=== PATIENT | male | born 1950 | race Caucasian/White ===

== ENCOUNTER 2017-02-05 15:38 | Emergency (ER) | payer OTHER, MEDICAID ==
[~2017-02-05] VITALS: Ht 185.4 cm; Wt 76.2 kg
[2017-02-05 15:45] VITALS: BP 116/66
== END 2017-02-05 16:19 | disposition home or self-care (01) ==
LOC: ER 15:40
DX: L73.9 Follicular disorder, unspecified (principal)
CPT/HCPCS: 99283; A4606; Z7610

== ENCOUNTER 2017-09-27 01:27 | Emergency (ER) | payer OTHER, MEDICAID ==
[~2017-09-27] VITALS: Ht 185.4 cm; Wt 76.2 kg
--- NOTE | 2017-09-27 01:27 | NUR ---
PT BB SELF C/O "NOT SLEEPING WELL FOR 3 DAYS AND ALSO HAVE PAIN FROM LEFT SHOULDER TO LEFT SIDED CHEST". VSS NAD A/OX4 ABLE TO MAKE NEEDS KNOWN. WILL CONTINUE TO MONITOR FOR ANY CHANGES DURING THE SHIFT.
--- NOTE | 2017-09-27 01:29 | NUR ---
ER MD BURGESS AT BEDSIDE
[2017-09-27] MEDS ORDERED: ASPIRIN 81 MG TAB.CHEW ONE (01:53)
--- NOTE | 2017-09-27 02:01 | NUR ---
EXECUTIVE STAFF ASSISTANT AT BEDSIDE
--- NOTE | 2017-09-27 02:05 | NUR ---
IV STARTED LAC 20G AND BLOOD DRAWN SENT TO LAB
[2017-09-27] MEDS: ASPIRIN 325 MG TABLET PO ONE (02:08)
[2017-09-27 02:16] LABS: BASOPHILS % (AUTO) 0.4 % (0.0-2.0); EOSINOPHILS % (AUTO) 2.8 % (0.0-6.0); HEMATOCRIT 40 % (39-51); HEMOGLOBIN 13.4 g/dL (13.5-17.5); LYMPHOCYTES # (AUTO) 1.3 /CMM (0.8-4.8); LYMPHOCYTES % (AUTO) 23.4 % (20.0-44.0); MEAN CORPUSCULAR HEMOGLOBIN 31 PG (26.0-33.0); MEAN CORPUSCULAR HGB CONC 34 g/dl (31.0-36.0); MEAN CORPUSCULAR VOLUME 90 fL (80-96); MONOCYTES # (AUTO) 0.6 /CMM (0.1-1.30); MONOCYTES % (AUTO) 11.5 % (2.0-12.0); NEUTROPHILS # (AUTO) 3.4 /CMM (1.8-8.9); NEUTROPHILS % (AUTO) 61.9 % (43.0-81.0); PLATELET COUNT (AUTO) 271 /CMM (150-450); RDW COEFFICIENT OF VARIATION 13.2 (11.5-15.0); RED BLOOD CELL COUNT(AUTO) 4.39 MIL/uL (4.5-6.0); WHITE BLOOD COUNT (AUTO) 5.4 K/uL (4.3-11.0)
[2017-09-27 02:26] LABS: CALCIUM, SERUM 8.5 mg/dL (8.5-10.1); CARBON DIOXIDE 27 mmol/L (21-32); CHLORIDE 103 mmol/L (98-107); CREATININE 1.2 mg/dL (0.6-1.3); GLUCOSE 99 mg/dL (74-106); POTASSIUM 4.1 mmol/L (3.5-5.1); SODIUM SERUM 137 mmol/L (136-145); UREA NITROGEN, BLOOD 21 mg/dL (7-18)
[2017-09-27 02:37] LABS: TROPONIN I < 0.017 ng/mL (0.00-0.056)
[2017-09-27 03:13] VITALS: BP 138/81
== END 2017-09-27 03:14 | disposition home or self-care (01) ==
LOC: ER 01:29
DX: G47.00 Insomnia, unspecified (principal); R07.89 Other chest pain; F17.200 Nicotine dependence, unspecified, uncomplicated; F10.10 Alcohol abuse, uncomplicated; Y90.9 Presence of alcohol in blood, level not specified
CPT/HCPCS: 36415; 71045-TC; 80048-TC; 84484-TC; 85025-TC; A4606; Z7610

== ENCOUNTER 2017-11-24 00:25 | Emergency (ER) | payer OTHER, MEDICAID ==
[~2017-11-24] VITALS: Ht 182.9 cm; Wt 76.2 kg
--- NOTE | 2017-11-24 00:46 | NUR ---
PT AMBULATORY TO ER BED 3. BIBSELF C/O RIGHT FLANK PAIN RADIATING TO GROIN SINCE LAST NIGHT. PT PLACED IN GOWN AND ON DESIGN SUPERVISOR. VSS/RESP EVEN UNLABORED/NAD NOTED/SKIN WARM AND DRY/AFEBRILE/DENIES N-V-D/AOX4. AWAITNG MD SADLER.
--- NOTE | 2017-11-24 00:50 | NUR ---
URINE SPECIMEN OBTAINED AND SENT TO THE LAB.
[2017-11-24] MEDS ORDERED: KETOROLAC TROMETHAMINE INJ 30 MG/ML VIAL IV ONE (01:00)
[2017-11-24] MEDS ORDERED: IV NS 0.9% 1,000 ML BAG IV ONE (01:00)
[2017-11-24] MEDS ORDERED: ONDANSETRON HCL/PF 4 MG/2 ML VIAL IVP ONE (01:00)
--- NOTE | 2017-11-24 01:03 | NUR ---
AT BEDSIDE FOR EVAL.
[2017-11-24] MEDS ORDERED: KETOROLAC TROMETHAMINE INJ 30 MG/ML VIAL ONE (01:06)
[2017-11-24] MEDS ORDERED: ONDANSETRON HCL/PF 4 MG/2 ML VIAL ONE (01:06)
--- NOTE | 2017-11-24 01:15 | NUR ---
18G IV TO L AC X 1 ATTEMPT USING ASEPTIC TECH, BLOOD HANDED OVER TO THE LAB AT BEDSIDE. IV FLUSHES EASILY WITH NS, NO S/S INFILTRATION NOTED AT THIS TIME.
[2017-11-24 01:23] LABS: APPEARANCE,URINE CLEAR (CLEAR); BILIRUBIN,URINE NEGATIVE (NEGATIVE); BLOOD, URINE 1+ Ery/uL (NEGATIVE); COLOR,URINE YELLOW (YELLOW); KETONES,URINE TRACE (NEGATIVE); LEUKOCYTE ESTERASE ,URINE NEGATIVE (NEGATIVE); NITRITE, URINE NEGATIVE (NEGATIVE); PH,URINE 5.5 (5.0-8.0); PROTEIN,URINE NEGATIVE (NEGATIVE); UGLUCOSE NEGATIVE (NEGATIVE); UROBILINOGEN,URINE 0.2 EU/dL (0.2)
[2017-11-24 01:24] LABS: BASOPHILS % (AUTO) 0.5 % (0.0-2.0); EOSINOPHILS % (AUTO) 3.2 % (0.0-6.0); HEMATOCRIT 42 % (39-51); HEMOGLOBIN 13.7 g/dL (13.5-17.5); LYMPHOCYTES # (AUTO) 1.1 /CMM (0.8-4.8); LYMPHOCYTES % (AUTO) 22.2 % (20.0-44.0); MEAN CORPUSCULAR HEMOGLOBIN 30 PG (26.0-33.0); MEAN CORPUSCULAR HGB CONC 33 g/dl (31.0-36.0); MEAN CORPUSCULAR VOLUME 90 fL (80-96); MONOCYTES # (AUTO) 0.6 /CMM (0.1-1.30); MONOCYTES % (AUTO) 12.1 % (2.0-12.0); PLATELET COUNT (AUTO) 288 /CMM (150-450); RED BLOOD CELL COUNT(AUTO) 4.61 MIL/uL (4.5-6.0); WHITE BLOOD COUNT (AUTO) 4.9 K/uL (4.3-11.0)
[2017-11-24 01:31] LABS: BACTERIA,URINE Few /HPF (None Seen); MUCUS,URINE Few /LPF (None Seen); SQUAMOUS EPITHELIAL CELL,UR Rare /HPF (None Seen); WBC,URINE 0-2 /HPF (0-3)
[2017-11-24 01:32] LABS: CALCIUM, SERUM 8.7 mg/dL (8.5-10.1); CREATININE 1.1 mg/dL (0.6-1.3); POTASSIUM 3.8 mmol/L (3.5-5.1)
--- NOTE | 2017-11-24 01:35 | NUR ---
PT TO CT VIA STRETCHER.
[2017-11-24 01:38] LABS: ALBUMIN 3.3 g/dL (3.4-5.0); BILIRUBIN,DIRECT 0.1 mg/dL (0.0-0.2); BILIRUBIN,TOTAL 0.2 mg/dL (0.2-1.0); TOTAL PROTEIN, SERUM 7.1 g/dL (6.4-8.2)
--- NOTE | 2017-11-24 01:50 | NUR ---
PT BACK FROM CT.
--- NOTE | 2017-11-24 02:58 | NUR ---
IV removed. Catheter intact and site benign. Pressure and 4x4 applied to site. No bleeding noted. Patient discharged to home in stable condition. Written and verbal after care instructions given. Patient verbalizes understanding of instruction. Patient ambulatory with a steady gait.
[2017-11-24 03:01] VITALS: BP 134/70
== END 2017-11-24 03:02 | disposition home or self-care (01) ==
LOC: ER 00:28
DX: N20.0 Calculus of kidney (principal); F17.200 Nicotine dependence, unspecified, uncomplicated
CPT/HCPCS: 36415; 74176; 80048; 80076; 81001; 83690; 85025; 96374; 96375; 99285; A4606; J1885; J2405; J7030; 81000-TC; Z7610

== ENCOUNTER 2017-12-10 05:34 | Inpatient (IN) | payer OTHER, MEDICAID ==
[~2017-12-10] VITALS: Ht 182.9 cm; Wt 78.6 kg
--- NOTE | 2017-12-10 05:41 | NUR ---
BBSELF FROM HOME C/C PRESSURE LIKE CP X1 DAY S/P WORKOUT, WORSE SINCE 0200,RADIATING TO BOTH ARMS AND NECK. PT STATES HE IS UNABLE TO GO TO SLEEP. PT DENIES SOB, N/V/D. SKIN WARM AND DRY. PT DID NOT TAKE ANY MEDS AT HOME. RESP EVEN AND UNLABORED. NO S/S OF ACUTE DISTRESS NOTED. PT PLACED ON FRAME CATCHER AND POX. PT SAFETY AND COMFORT MEASURES IN PLACE. AWAITING MD FOR EVAL
[2017-12-10 05:52] LABS: BASOPHILS % (AUTO) 0.8 % (0.0-2.0); EOSINOPHILS % (AUTO) 3.3 % (0.0-6.0); HEMATOCRIT 43 % (39-51); HEMOGLOBIN 13.8 g/dL (13.5-17.5); LYMPHOCYTES # (AUTO) 1.2 /CMM (0.8-4.8); LYMPHOCYTES % (AUTO) 23.1 % (20.0-44.0); MEAN CORPUSCULAR HEMOGLOBIN 29 PG (26.0-33.0); MEAN CORPUSCULAR HGB CONC 32 g/dl (31.0-36.0); MEAN CORPUSCULAR VOLUME 90 fL (80-96); MONOCYTES # (AUTO) 0.7 /CMM (0.1-1.30); MONOCYTES % (AUTO) 13.1 % (2.0-12.0); NEUTROPHILS # (AUTO) 3.2 /CMM (1.8-8.9); NEUTROPHILS % (AUTO) 59.7 % (43.0-81.0); PLATELET COUNT (AUTO) 321 /CMM (150-450); RDW COEFFICIENT OF VARIATION 13.3 (11.5-15.0); RED BLOOD CELL COUNT(AUTO) 4.78 MIL/uL (4.5-6.0); WHITE BLOOD COUNT (AUTO) 5.3 K/uL (4.3-11.0)
[2017-12-10 06:02] LABS: CALCIUM, SERUM 8.8 mg/dL (8.5-10.1); CARBON DIOXIDE 31 mmol/L (21-32); CHLORIDE 104 mmol/L (98-107); CREATININE 1.2 mg/dL (0.6-1.3); GLUCOSE 97 mg/dL (74-106); SODIUM SERUM 140 mmol/L (136-145); UREA NITROGEN, BLOOD 16 mg/dL (7-18)
[2017-12-10 06:07] LABS: INR 0.95 (0.87-1.13)
[2017-12-10 06:12] LABS: TROPONIN I < 0.017 ng/mL (0.00-0.056)
[2017-12-10] MEDS ORDERED: NITROGLYCERIN PACKET 1 GM PACKET TD ONE (06:30)
[2017-12-10] MEDS ORDERED: ASPIRIN 325 MG TABLET PO ONE (06:30)
[2017-12-10] MEDS ORDERED: ASPIRIN 325 MG TABLET ONE (06:34)
[2017-12-10] MEDS ORDERED: NITROGLYCERIN PACKET 1 GM PACKET ONE (06:34)
[2017-12-10] MEDS ORDERED: ONDANSETRON HCL/PF 4 MG/2 ML VIAL ONE (06:58)
--- NOTE | 2017-12-10 07:00 | NUR ---
PT STATES HE IS FEELING NAUSEATED, MD MADE AWARE. VERBAL ORDER RECEIVED FOR ZOFRAN
[2017-12-10] MEDS ORDERED: ONDANSETRON HCL/PF 4 MG/2 ML VIAL IV ONE (07:30)
--- NOTE | 2017-12-10 07:35 | NUR ---
REPORT GIVEN TO SONJA ASCENCIO FOR YESIKA
[2017-12-10] MEDS ORDERED: DOCUSATE SODIUM 100 MG CAPSULE PO PRN (08:00)
[2017-12-10] MEDS ORDERED: ONDANSETRON HCL/PF 4 MG/2 ML VIAL IVP PRN (08:00)
[2017-12-10] MEDS ORDERED: MORPHINE SULFATE INJ 2 MG/ML DISP.SYRIN IV PRN (08:00)
[2017-12-10] MEDS ORDERED: ZOLPIDEM TARTRATE 5 MG TABLET PO PRN (08:00)
[2017-12-10] MEDS ORDERED: NITROGLYCERIN 0.4 MG/TAB BOTTLE SL PRN (08:00)
[2017-12-10] MEDS ORDERED: IV NS 0.9% 50 ML IV ONE (08:00)
[2017-12-10] MEDS ORDERED: ACETAMINOPHEN 325 MG TABLET PO PRN (08:00)
[2017-12-10] MEDS ORDERED: LORAZEPAM 1 MG TABLET PO PRN (08:00)
[2017-12-10] MEDS ORDERED: MAG HYDROX/AL HYDROX/SIMETH 30 ML UDC PO PRN (08:00)
--- NOTE | 2017-12-10 08:31 | NUR ---
REPORT GIVEN TO KENDALL CASILLAS FOR TELE.
[2017-12-10 09:00] VITALS: BP 122/63
[2017-12-10] MEDS ORDERED: ASPIRIN 81 MG TAB.CHEW PO SCH (09:00)
--- NOTE | 2017-12-10 09:00 | NUR ---
ADMISSION NOTES RECEIVED PATIENT FROM ER ON TELE. TELE MONITOR ON SR-50. PATIENT A/O X4 MEN ON Dx OF CHEST PAIN. PATIENT STABLE HAD NO ACUTE RESPIRATORY DISTRESS, V/S TAKEN T-97.5, P-61, R-18, BP-122/63, O2-97 ROOM AIR. PATIENT REFUSED PAIN AT THIS TIME. SKIN ASSESSMENT DONE, SKIN CLEAR, PATIENT AMBULATORY SELF CARE. PATIENT USING BATHROOM. PATIENT BELONGING CHECKED. COREY CIVIL DESIGNER AWARE OF NEW PATIENT AND MEDICATION. SAFETY PRECAUTION MAINTAINED ALL THE TIME, NEED ASSISTED AND ANTICIPATED. CALL LIGHT WITHIN TO REACH. CONTINUED MONITORING.
[2017-12-10 10:00] VITALS: BP 122/63
[2017-12-10 12:00] VITALS: BP 116/64
[2017-12-10 16:00] VITALS: BP 128/68
--- NOTE | 2017-12-10 16:12 | NUR ---
RN NOTES PATIENT RESTING IN THE BED SR-63, REFUSED PAIN. PATIENT SIGN CONSENT FORM FOR STRESS TEST TOMORROW 0800 AM. PATIENT SELF CARE, USING BATHROOM. CALL LIGHT WITHIN TO REACH. CONTINUED MONITORING.
--- NOTE | 2017-12-10 18:14 | NUR ---
rn notes administered Tylenol 650 mg po prn for headache per patient request. continued monitoring.
--- NOTE | 2017-12-10 18:45 | NUR ---
rn notes patient in the bed medication were administered for pain effective, no acute respiratory distress. SR- 63. call light within to reach. safety precaution maintained all the time. endorsed oncoming nurse for plan of care.
[2017-12-10 20:00] VITALS: BP 124/74
--- NOTE | 2017-12-10 20:00 | NUR ---
OUTSIDE COLLECTOR INITIAL NOTES, RECEIVED PATIENT IN BED, A/O X4, ABLE TO VERBALIZED NEEDS AND CONCERNS, NO SOB/ ACUTE RESPIRATORY DISTRESS NOTED AT THIS TIME, DENIES PAIN OR DISCOMFORT, AMBULATORY SELF CARE, RIGHT AC 18G, S/L INTACT AND PATENT, ABLE TO TRANSFER TO BATHROOM WITHOUT ASSISTANCE, ALL NEED ASSISTED AND ANTICIPATED, CALL LIGHT WITHIN TO REACH. WILL CONTINUED TO MONITOR CLOSELY.
[2017-12-10] MEDS ORDERED: MAGNESIUM HYDROXIDE 30 ML UDC PO PRN (23:30)
[2017-12-11 06:20] LABS: BASOPHILS % (AUTO) 0.3 % (0.0-2.0); HEMATOCRIT 43 % (39-51); LYMPHOCYTES # (AUTO) 1.1 /CMM (0.8-4.8); LYMPHOCYTES % (AUTO) 16.6 % (20.0-44.0); MEAN CORPUSCULAR HEMOGLOBIN 29 PG (26.0-33.0); MEAN CORPUSCULAR HGB CONC 32 g/dl (31.0-36.0); MEAN CORPUSCULAR VOLUME 91 fL (80-96); MONOCYTES # (AUTO) 0.6 /CMM (0.1-1.30); MONOCYTES % (AUTO) 9.7 % (2.0-12.0); NEUTROPHILS # (AUTO) 4.5 /CMM (1.8-8.9); NEUTROPHILS % (AUTO) 70.4 % (43.0-81.0); PLATELET COUNT (AUTO) 294 /CMM (150-450); RDW COEFFICIENT OF VARIATION 13.6 (11.5-15.0); RED BLOOD CELL COUNT(AUTO) 4.76 MIL/uL (4.5-6.0); WHITE BLOOD COUNT (AUTO) 6.3 K/uL (4.3-11.0)
[2017-12-11 06:41] LABS: CALCIUM, SERUM 8.7 mg/dL (8.5-10.1); CREATININE 1.2 mg/dL (0.6-1.3); MAGNESIUM 2.2 mg/dL (1.8-2.4); PHOSPHORUS 3.2 mg/dL (2.5-4.9); POTASSIUM 4.5 mmol/L (3.5-5.1)
--- NOTE | 2017-12-11 07:26 | NUR ---
SENIOR AUDITOR OPENING NOTES PATIENT RECEIVED AWAKE IN BED IN NO ACUTE SIGNS OF DISTRESS. A/O X4. VERBALLY RESPONSIVE, DENIES PAIN OR ANY DISCOMFORTS AT THIS TIME. NPO MAINTAINED, PT FOR NM MYOCARDIAL STRESS TEST THIS MORNING, PT IS AWARE. ON TELE-MONITORING WITH CURRENT READING OF SR WITH HR OF 67, NO CARDIAC DISTRESS VOICED. PT ON ROOM AIR, BREATHING EVEN AND UNLABORED. IV ACCESS ON RAC G# 18 INTACT AND PATENT, FLUSHES WELL. SAFETY MEASURES IN PLACED. BED IN LOW LOCKED POSITION WITH SIDE-RAILS UP X2. CALL LIGHT WITHIN REACH. WILL CONTINUE TO MONITOR PT ACCORDINGLY.
[2017-12-11 08:00] VITALS: BP 132/76
--- NOTE | 2017-12-11 11:44 | NUR ---
RN NOTES PATIENT NM MYOCARDIAL STRESS TEST DONE. AWAITING FOR RESULTS.
--- NOTE | 2017-12-11 13:32 | NUR ---
RN NOTES PATIENT'S NM MYOCARDIAC STRESS TEST RESULTS CAME OUT AND JARON DENISE MADE AWARE. HE STATED THAT HE WILL WAIT FOR DR ELLIOTT'S CLEARANCE WHETHER PT WILL BE DISCHARGE TODAY.
--- NOTE | 2017-12-11 15:09 | NUR ---
RN DISCHARGED NOTES PATIENT DISCHARGED HOME IN STABLE CONDITION. A/O X4. ABLE TO MAKE NEEDS KNOWN. NO C/O CHEST PAIN OR DISCOMFORTS VOICED. V/S TAKEN AND RECORDED. SKIN IS INTACT. IV ACCESS REMOVED WITH NO ACTIVE BLEEDING NOTED. ALL BELONGINGS CHECKED, COUNTED AND SIGNED FORM. HEALTH TEACHINGS / DISCHARGED INSTRUCTIONS GIVEN AND PT VERBALIZED UNDERSTANDING. PATIENT LEFT UNIT AT 1500 IN NO ACUTE SIGNS OF DISTRESS, AMBULATORY AND I ACCOMPANIED HIM TO THE LOBBY. CHARGE NURSE AWARE OF PT'S DISCHARGE.
[2017-12-12] MEDS ORDERED: PANTOPRAZOLE 40 MG TABLET.DR PO SCH (07:30)
== END 2017-12-11 15:00 | disposition home or self-care (01) | DRG 206 ==
LOC: ER 05:37 → TELE 08:33 → MED 12-11 09:47
PROVIDERS: ADMIT Nurse Practitioner Acute Care; ATTEND Nurse Practitioner Acute Care
DX: M94.0 Chondrocostal junction syndrome [Tietze] (principal); K21.9 Gastro-esophageal reflux disease without esophagitis; Z87.442 Personal history of urinary calculi
CPT/HCPCS: 36415; 71045-TC; 76700-TC; 80048-TC; 80061-TC; 83690-TC; 83735-TC; 84100-TC; 84484-TC; 85025-TC; 85730-TC; 87081-TC; 93307-TC; A4216; A4606; A9502; J2405; Z7610

== ENCOUNTER 2018-03-12 15:13 | Emergency (ER) | payer OTHER, MEDICAID ==
[~2018-03-12] VITALS: Ht 182.9 cm; Wt 75.7 kg
--- NOTE | 2018-03-12 15:15 | NUR ---
BIB SELF 68 YEAR OLD MALE C/O LEFT ANKLE PAIN X 1 DAY, DENIES PAIN AT THIS TIME. ALERT AND ORIENTED X4, BREATHING EVEN AND UNLABORED WITH NO DISTRESS NOTED. SKIN INTACT AND WARM TO TOCU. VSS ARE STABLE, AWAITING TO BE SEEN MY MD.
--- NOTE | 2018-03-12 15:30 | NUR ---
Karlee joe in ED - 03/12/18 at 1544 by CHELY 68 Y/O MALE PLACED IN BED 15 C/O EXCESS ALCOHOL CONSUMPTION. PT IS YELLING AND TRASHING IN BED
--- NOTE | 2018-03-12 15:38 | NUR ---
Karlee joe in ED - 03/12/18 at 1544 by CHELY PT PLACED IN TWO POINT RESTRAINTS TO PROTECT PT FROM FALLING OUT OF BED.
--- NOTE | 2018-03-12 15:55 | NUR ---
GEORGETTE MONTALVO AT BEDSIDE FOR X-RAY OF THE ANKLE
[2018-03-12 18:22] VITALS: BP 140/80
== END 2018-03-12 18:27 | disposition home or self-care (01) ==
LOC: ER 15:16
DX: S92.355A Nondisplaced fracture of fifth metatarsal bone, left foot, initial encounter for closed fracture (principal); F10.10 Alcohol abuse, uncomplicated; F12.10 Cannabis abuse, uncomplicated; Y90.9 Presence of alcohol in blood, level not specified; W10.8XXA Fall (on) (from) other stairs and steps, initial encounter; Y93.89 Activity, other specified; Y92.89 Other specified places as the place of occurrence of the external cause; Y99.8 Other external cause status
CPT/HCPCS: 29515; 73610; 73630; 99283; A4606; Z7610

== ENCOUNTER 2018-08-02 02:14 | Emergency (ER) | payer MEDICARE, MEDICAID ==
[~2018-08-02] VITALS: Ht 182.9 cm; Wt 77.1 kg
--- NOTE | 2018-08-02 02:34 | NUR ---
BIB SELF. TO ER BED 3. AAOX4. NAD. BREATHING IS EVEN AND UNLABORED. AMBULATORY. CAME IN WITH C/O R LOWER BACK, R FLANK AND RLQ ABDOMINAL PAIN THAT STARTED 9PM THIS EVENING. PT HAD DRY HEEVES PRIOR TO GETTING HERE. NO VOMITING. @ [facility] FOR DOROTEO.
--- NOTE | 2018-08-02 02:40 | NUR ---
URINE COLLECTED SENT TO LAB
[2018-08-02] MEDS ORDERED: KETOROLAC TROMETHAMINE INJ 30 MG/ML VIAL ONE (02:47)
[2018-08-02 02:49] LABS: APPEARANCE,URINE Clear (CLEAR); BILIRUBIN,URINE Negative (NEGATIVE); BLOOD, URINE Trace-lysed Ery/uL (NEGATIVE); COLOR,URINE Yellow (YELLOW); KETONES,URINE Negative (NEGATIVE); LEUKOCYTE ESTERASE ,URINE Negative (NEGATIVE); NITRITE, URINE Negative (NEGATIVE); PROTEIN,URINE Negative (NEGATIVE); UGLUCOSE Negative (NEGATIVE); UROBILINOGEN,URINE 0.2 EU/dL (0.2)
--- NOTE | 2018-08-02 02:52 | NUR ---
EKG AT BEDSIDE. STROBOSCOPE OPERATOR AT BEDSIDE FOR BLOOD DRAW.
[2018-08-02] MEDS ORDERED: KETOROLAC TROMETHAMINE INJ 30 MG/ML VIAL IM ONE (03:00)
[2018-08-02 03:01] LABS: BACTERIA,URINE None seen /HPF (None Seen); RBC,URINE 0-2 /HPF (0-2); WBC,URINE 0-2 /HPF (0-3)
[2018-08-02 03:02] LABS: BASOPHILS % (AUTO) 0.6 % (0.0-2.0); EOSINOPHILS % (AUTO) 0.2 % (0.0-6.0); HEMATOCRIT 39 % (39-51); HEMOGLOBIN 13.2 g/dL (13.5-17.5); LYMPHOCYTES # (AUTO) 0.6 /CMM (0.8-4.8); LYMPHOCYTES % (AUTO) 8.1 % (20.0-44.0); MEAN CORPUSCULAR HGB CONC 34 g/dl (31.0-36.0); MEAN CORPUSCULAR VOLUME 89 fL (80-96); MONOCYTES # (AUTO) 0.4 /CMM (0.1-1.30); MONOCYTES % (AUTO) 5.6 % (2.0-12.0); NEUTROPHILS # (AUTO) 6.5 /CMM (1.8-8.9); NEUTROPHILS % (AUTO) 85.5 % (43.0-81.0); PLATELET COUNT (AUTO) 284 /CMM (150-450); RED BLOOD CELL COUNT(AUTO) 4.42 MIL/uL (4.5-6.0); WHITE BLOOD COUNT (AUTO) 7.6 K/uL (4.3-11.0)
[2018-08-02 03:02] LABS: SQUAMOUS EPITHELIAL CELL,UR Few /HPF (None Seen)
[2018-08-02 03:05] LABS: CALCIUM, SERUM 9.1 mg/dL (8.5-10.1); CREATININE 1.1 mg/dL (0.6-1.3); POTASSIUM 4.4 mmol/L (3.5-5.1)
[2018-08-02 03:10] LABS: ALBUMIN 3.3 g/dL (3.4-5.0); BILIRUBIN,DIRECT 0.1 mg/dL (0.0-0.2); BILIRUBIN,TOTAL 0.3 mg/dL (0.2-1.0); TOTAL PROTEIN, SERUM 6.7 g/dL (6.4-8.2)
--- NOTE | 2018-08-02 03:15 | NUR ---
PT COMING BACK FROM RADIOLOGY VIA [facility].
--- NOTE | 2018-08-02 03:36 | NUR ---
ROUNDED WITH PT. VERBALIZED RELIEF FROM MEDICATION, PAIN IS NOW 4/10 FROM 810.
--- NOTE | 2018-08-02 04:55 | NUR ---
Patient discharged to home in stable condition. Written and verbal after care instructions given. Patient verbalizes understanding of instruction.
[2018-08-02 05:12] VITALS: BP 126/80
== END 2018-08-02 04:58 | disposition home or self-care (01) ==
LOC: ER 02:21
DX: R10.31 Right lower quadrant pain (principal); F12.10 Cannabis abuse, uncomplicated; F10.10 Alcohol abuse, uncomplicated; Y90.9 Presence of alcohol in blood, level not specified
CPT/HCPCS: 36415; 74176; 80048; 80076; 81001; 83690; 85025; 93005; 96372; 99284; J1885; 81000-TC

== ENCOUNTER 2018-12-26 14:35 | Emergency (ER) | payer MEDICARE, MEDICAID ==
[~2018-12-26] VITALS: Ht 182.9 cm; Wt 76.2 kg
[2018-12-26 14:51] VITALS: BP 120/72
[2018-12-26] MEDS ORDERED: TDAP [DIPH/PERTUSSIS/TET] 0.5 ML VIAL IM ONE ×2 (15:00→15:37)
[2018-12-26] MEDS ORDERED: LIDOCAINE 1%-EPI 1:100,000 50 ML VIAL IJ ONE (15:00)
[2018-12-26] MEDS ORDERED: LIDOCAINE 1%-EPI 1:100,000 20 ML VIAL ONE (15:08)
== END 2018-12-26 16:14 | disposition home or self-care (01) ==
LOC: ER 14:41
DX: S61.412A Laceration without foreign body of left hand, initial encounter (principal); F10.10 Alcohol abuse, uncomplicated; F12.10 Cannabis abuse, uncomplicated; Y90.9 Presence of alcohol in blood, level not specified; W01.0XXA Fall on same level from slipping, tripping and stumbling without subsequent striking against object, initial encounter; Y93.89 Activity, other specified; Y92.89 Other specified places as the place of occurrence of the external cause; Y99.8 Other external cause status
CPT/HCPCS: 12001; 73130; 99283; A6403; J3490 ×2; 90715

== ENCOUNTER 2018-12-27 17:42 | Emergency (ER) | payer MEDICARE, MEDICAID ==
[~2018-12-27] VITALS: Ht 182.9 cm; Wt 78.5 kg
[2018-12-27 17:49] VITALS: BP 127/76
--- NOTE | 2018-12-27 18:08 | NUR ---
CALLED TO ROOM IN,NO ANSWER
--- NOTE | 2018-12-27 18:11 | NUR ---
Called No answer. NOT in Waiting Room
== END 2018-12-27 18:11 | disposition home or self-care (01) ==
LOC: ER 17:42
DX: R20.2 Paresthesia of skin (principal); Z53.21 Procedure and treatment not carried out due to patient leaving prior to being seen by health care provider

== ENCOUNTER 2019-03-08 17:34 | Emergency (ER) | payer MEDICARE, MEDICAID ==
[~2019-03-08] VITALS: Ht 157.5 cm; Wt 79.4 kg
--- NOTE | 2019-03-08 17:42 | NUR ---
PT CAME INTO THE ED C/O CHEST PAIN RADIATING TO THE LEFT ARM WHICH STARTED 48 HOURS AGO. PT DESCRIBED IT DILL 2/ PS. -SOB, HEADACHE, DIZZINESS. PT AAOX4, VSS, BREATHING EVEN AND UNLABORED ON ROOM AIR W/ NAD NOTED. PT CONENCTED TO THE MANAGER ADOBE AND POX
--- NOTE | 2019-03-08 17:45 | NUR ---
IV LINE ESTABLISHED LAC 18G. BLOOD DRAWN AND SENT TO LAB
[2019-03-08] MEDS ORDERED: ASPIRIN 325 MG TABLET ONE (17:53)
[2019-03-08] MEDS ORDERED: ASPIRIN 325 MG TABLET PO ONE (18:00)
[2019-03-08 18:05] LABS: BASOPHILS % (AUTO) 0.8 % (0.0-2.0); EOSINOPHILS % (AUTO) 1.6 % (0.0-6.0); HEMATOCRIT 40 % (39-51); LYMPHOCYTES # (AUTO) 0.7 /CMM (0.8-4.8); LYMPHOCYTES % (AUTO) 16.3 % (20.0-44.0); MEAN CORPUSCULAR HGB CONC 33 g/dl (31.0-36.0); MEAN CORPUSCULAR VOLUME 91 fL (80-96); MONOCYTES # (AUTO) 0.5 /CMM (0.1-1.30); MONOCYTES % (AUTO) 10.3 % (2.0-12.0); NEUTROPHILS # (AUTO) 3.3 /CMM (1.8-8.9); PLATELET COUNT (AUTO) 269 /CMM (150-450); RED BLOOD CELL COUNT(AUTO) 4.38 MIL/uL (4.5-6.0); WHITE BLOOD COUNT (AUTO) 4.6 K/uL (4.3-11.0)
[2019-03-08 18:12] LABS: CALCIUM, SERUM 8.6 mg/dL (8.5-10.1); CARBON DIOXIDE 31 mmol/L (21-32); CHLORIDE 106 mmol/L (98-107); CREATININE 1.2 mg/dL (0.6-1.3); GLUCOSE 105 mg/dL (74-106); POTASSIUM 4.1 mmol/L (3.5-5.1); SODIUM SERUM 141 mmol/L (136-145); UREA NITROGEN, BLOOD 16 mg/dL (7-18)
[2019-03-08 18:57] VITALS: BP 147/81
--- NOTE | 2019-03-08 18:57 | NUR ---
Patient discharged to home in stable condition. Written and verbal after care instructions given. Patient verbalizes understanding of instruction.
== END 2019-03-08 18:58 | disposition home or self-care (01) ==
LOC: ER 17:35
DX: R07.89 Other chest pain (principal)
CPT/HCPCS: 36415; 71045-TC; 80048-TC; 84484-TC; 85025-TC

== ENCOUNTER 2019-07-08 17:53 | Inpatient (IN) | payer MEDICARE, OTHER ==
[~2019-07-08] VITALS: Ht 170.2 cm; Wt 80.3 kg
[2019-07-08] MEDS ORDERED: TDAP [DIPH/PERTUSSIS/TET] 0.5 ML VIAL IM ONE ×2 (18:12→18:30)
--- NOTE | 2019-07-08 18:20 | NUR ---
patient MOIRA had seizure episode witnessed, no oral trauma. On room air, breathing evenly and unlabored. connected to the monitor and pulse ox. kept comfortable, will continue to monitor accordingly.
[2019-07-08] MEDS ORDERED: LEVETIRACETAM (500MG) 1,000 MG in IV NS 0.9% 100 ML IV SCH (18:30)
[2019-07-08 18:31] LABS: BASOPHILS % (AUTO) 0.6 % (0.0-2.0); EOSINOPHILS % (AUTO) 0.8 % (0.0-6.0); HEMATOCRIT 43 % (39-51); HEMOGLOBIN 13.9 g/dL (13.5-17.5); LYMPHOCYTES # (AUTO) 1.3 /CMM (0.8-4.8); LYMPHOCYTES % (AUTO) 21.7 % (20.0-44.0); MEAN CORPUSCULAR HGB CONC 33 g/dl (31.0-36.0); MEAN CORPUSCULAR VOLUME 90 fL (80-96); MONOCYTES # (AUTO) 0.5 /CMM (0.1-1.30); MONOCYTES % (AUTO) 8.5 % (2.0-12.0); NEUTROPHILS # (AUTO) 4.1 /CMM (1.8-8.9); NEUTROPHILS % (AUTO) 68.4 % (43.0-81.0); PLATELET COUNT (AUTO) 302 /CMM (150-450)
[2019-07-08 18:40] LABS: CALCIUM, SERUM 8.8 mg/dL (8.5-10.1); CARBON DIOXIDE 22 mmol/L (21-32); CHLORIDE 102 mmol/L (98-107); CREATININE 1.2 mg/dL (0.6-1.3); GLUCOSE 115 mg/dL (74-106); POTASSIUM 3.7 mmol/L (3.5-5.1); SODIUM SERUM 137 mmol/L (136-145); UREA NITROGEN, BLOOD 23 mg/dL (7-18)
[2019-07-08] MEDS ORDERED: MORPHINE SULFATE INJ 2 MG/ML DISP.SYRIN ONE (18:43)
[2019-07-08] MEDS ORDERED: ONDANSETRON HCL/PF 4 MG/2 ML VIAL ONE (18:43)
[2019-07-08 18:45] LABS: ALANINE AMINOTRANSFERASE 29 U/L (12-78); ALBUMIN 3.5 g/dL (3.4-5.0); ALCOHOL, BLOOD < 3 mg/dL (0-0); ALKALINE PHOSPHATASE 63 U/L (46-116); ASPARTATE AMINOTRANSFERASE 27 U/L (15-37); BILIRUBIN,TOTAL 0.2 mg/dL (0.2-1.0); TOTAL PROTEIN, SERUM 7.2 g/dL (6.4-8.2)
--- NOTE | 2019-07-08 18:51 | NUR ---
wheeled patient to ct
[2019-07-08] MEDS ORDERED: ONDANSETRON HCL/PF - ER 4 MG/2 ML VIAL IV ONE (19:00)
[2019-07-08] MEDS ORDERED: MORPHINE SULFATE INJ 2 MG/ML DISP.SYRIN IV ONE (19:00)
--- NOTE | 2019-07-08 19:19 | NUR ---
REPORT RECEIVED FROM SONJA DUMONT
--- NOTE | 2019-07-08 20:16 | NUR ---
PAGED OFFICE OF DR GIBSON
--- NOTE | 2019-07-08 20:40 | NUR ---
CALLED VERO GUNN SPEAKING WITH TIMOTHY
--- NOTE | 2019-07-08 21:10 | NUR ---
DR GIBSON SPEAKING WITH DR AGUIRRE
--- NOTE | 2019-07-08 21:17 | NUR ---
ER TALKING TO LONNIE BUSBY REGARDING PT ADMISSION.
--- NOTE | 2019-07-08 21:20 | NUR ---
LONNIE BUSBY AT BEDSIDE TO DOROTEO GARCIA.
--- NOTE | 2019-07-08 21:38 | NUR ---
REPORT GIVEN TO SONJA PIERRE
--- NOTE | 2019-07-08 22:07 | NUR ---
PT TRANSFERRED TO ROOM IN STABLE CONDITION VIA ACLS [PROTOCOL
--- NOTE | 2019-07-08 22:10 | NUR ---
RECEIVED PATIENT FROM ER VIA GURNEY. PATIENT ADMITTED TO TELE 309- 2 DUE TO SEIZURE UNDER THE SERVICE OF DEANGELO. TRANSFERRED TO BED COMFORTABLY. ADMISSION ROUTINE DONE. PATIENTS BELONGINGS INVENTORY COMPLETED BY ASSIGNED IMAGING TECH. INITIAL SKIN ASSESSMENT DONE. PATIENT DENIES ANY SKIN PROBLEMS AT THIS TIME. PT HAS NO IV. PATIENT HAS IMMOBILIZER ON LEFT ARM. PT C/O OF PAIN ON LEFT SHOULDER 6 OUT OF 10 WHEN MOBILIZING IT. BREATHING EVEN AND UNLABORED. NO S/S OF SOB. NO RESPIRATORY DISTRESS . ON ROOM AIR. ON TELE MONITOR WITH SINUS RHYTHM 91-92. ADMISSION ORDERS NOTED AND CARRIED OUT. KEPT PT ON BED CLEAN, DRY AND COMFORTABLE. CALL LIGHT WITHIN REACH. ON FALL, ASPIRATION, AND SEIZURE PRECAUTION. WILL CONTINUE TO MONITOR ACCORDINGLY.
[2019-07-08 22:30] VITALS: BP 153/81
[2019-07-08] MEDS ORDERED: IV NS 0.9% 1,000 ML IV PRN (22:34)
[2019-07-08] MEDS ORDERED: MORPHINE SULFATE INJ 2 MG/ML DISP.SYRIN IV PRN (23:00)
[2019-07-08] MEDS ORDERED: MAG HYDROX/AL HYDROX/SIMETH 30 ML UDC PO PRN (23:00)
[2019-07-08] MEDS ORDERED: MAGNESIUM HYDROXIDE 30 ML UDC PO PRN (23:00)
[2019-07-08] MEDS ORDERED: Z GUARD REMEDY 2 OZ OINT TP PRN (23:00)
[2019-07-08] MEDS ORDERED: ONDANSETRON HCL/PF 4 MG/2 ML VIAL IVP PRN (23:00)
[2019-07-08] MEDS ORDERED: ACETAMINOPHEN 325 MG TABLET PO PRN (23:00)
[2019-07-09] VITALS (7 sets, daily range): BP systolic 146–158; BP diastolic 71–89
[2019-07-09] MEDS: HYDROCODONE/APAP 5/325MG 1 EACH TABLET PO PRN ×2 (01:30→23:13)
[2019-07-09] MEDS ORDERED: LEVETIRACETAM (500MG) 500 MG/5 ML VIAL IV ONE (03:17)
--- NOTE | 2019-07-09 06:28 | NUR ---
MS CLOSING NOTES: PATIENT IN BED SLEEPING WITH EYES CLOSED. PT IS EASILY AWAKEN. NO S/S OF SOB. NO S/S OF RESPIRATORY DISTRESS. BREATHING EVEN AND UNLABORED. ON TELE, PT IS IN SINUS RHYTHM. SKIN WARM TO TOUCH, IV ACCESS SITE INTACT AND PATENT. SAFETY PRECAUTIONS IN PLACE, BED ON LOWEST LOCKED POSITION, CALL LIGHT WITHIN REACH. WILL ENDORSE TO ONCOMING NURSE.
[2019-07-09] MEDS ORDERED: LEVETIRACETAM (500MG) 1,000 MG in IV NS 0.9% 100 ML IV SCH (06:30)
[2019-07-09 06:32] LABS: BASOPHILS % (AUTO) 0.1 % (0.0-2.0); HEMATOCRIT 40 % (39-51); HEMOGLOBIN 12.8 g/dL (13.5-17.5); LYMPHOCYTES # (AUTO) 0.5 /CMM (0.8-4.8); LYMPHOCYTES % (AUTO) 5.9 % (20.0-44.0); MEAN CORPUSCULAR HGB CONC 32 g/dl (31.0-36.0); MEAN CORPUSCULAR VOLUME 90 fL (80-96); MONOCYTES # (AUTO) 0.7 /CMM (0.1-1.30); NEUTROPHILS # (AUTO) 7.4 /CMM (1.8-8.9); PLATELET COUNT (AUTO) 267 /CMM (150-450); RED BLOOD CELL COUNT(AUTO) 4.42 MIL/uL (4.5-6.0); WHITE BLOOD COUNT (AUTO) 8.5 K/uL (4.3-11.0)
[2019-07-09 06:47] LABS: CALCIUM, SERUM 8.3 mg/dL (8.5-10.1); CREATININE 1.1 mg/dL (0.6-1.3); PHOSPHORUS 2.9 mg/dL (2.5-4.9)
[2019-07-09 06:53] LABS: THYROID STIMULATING HORMONE 1.178 uIU/mL (0.358-3.74)
--- NOTE | 2019-07-09 07:36 | NUR ---
FOLDING RULES PRINTING MACHINE OPERATOR OPENING NOTES RECEIVED PATIENT IN BED RESTING COMFORTABLY. PATIENT IN NO ACUTE DISTRESS. NO SOB NOTED. PATIENT BREATHING IS EVEN AND UNLABORED. BED ALARM IS ON. PATIENT SAFETY PRECAUTIONS IN PLACE. PATIENT ON CARDIAC MONITORING READING SINUS RHYTHM HR 78. PATIENT BED IS LOCKED AND IN LOWEST POSITION. CALL LIGHT WITHIN REACH. WILL CONTINUE TO MONITOR.
--- NOTE | 2019-07-09 09:55 | NUR ---
EMERGENCY RESPONSE COORDINATOR NOTE PATIENT IS ALERT AND ORIENTED X4. PATIENT DRINKING WATER AT THE BEDSIDE. PATIENT REFUSING TO HAVE WATER REMOVED DESPITE NPO STATUS. PATIENT STATES " WHEN I SEE THE ORTHO DOCTOR, THEN I WILL SEE IF I NEED SURGERY AND SEE THEN IF I NEED TO STOP DRINKING WATER". SPOKE WITH DYLON LO MD, PER MD WILL SEE PATIENT LATER TODAY. NO PROCEDURES TO BE DONE AT THIS TIME, PER MD OKAY TO HAVE WATER AT THIS TIME. PER DYLON, ORDER FOR CT LEFT SHOULDER WITH 3D RECONSTRUCTION IMAGES. PER RADIOLOGY SAHIL CT WITH IMAGES WAS DONE YESTERDAY.
[2019-07-09 11:06] LABS: APPEARANCE,URINE CLOUDY (CLEAR); BILIRUBIN,URINE NEGATIVE (NEGATIVE); BLOOD, URINE MODERATE Ery/uL (NEGATIVE); COLOR,URINE YELLOW (YELLOW); KETONES,URINE NEGATIVE (NEGATIVE); LEUKOCYTE ESTERASE ,URINE NEGATIVE (NEGATIVE); NITRITE, URINE NEGATIVE (NEGATIVE); PH,URINE 5.5 (5.0-8.0); PROTEIN,URINE NEGATIVE (NEGATIVE); UGLUCOSE NEGATIVE (NEGATIVE); UROBILINOGEN,URINE 0.2 EU/dL (0.2)
[2019-07-09 11:09] LABS: URIC ACID CRYSTALS,URINE Many /HPF (None Seen)
[2019-07-09 11:13] LABS: BACTERIA,URINE Rare /HPF (None Seen); RBC,URINE 0-2 /HPF (0-2); SQUAMOUS EPITHELIAL CELL,UR Rare /HPF (None Seen); WBC,URINE 0-2 /HPF (0-3)
--- NOTE | 2019-07-09 11:16 | NUR ---
SOCIAL PSYCHOLOGIST NOTE SPOKE WITH DR. LOZANO REGARDING NEURO CONSULT. PER MD CONSULT CONFIRMED WITH DR. CAMPA.
--- NOTE | 2019-07-09 14:00 | NUR ---
SALES FINANCIAL ANALYST NOTE PATIENT REFUSING TO HAVE IV FLUIDS AT THIS TIME. PATIENT STATES "I AM TIRED OF THE FLUIDS I DONT WANT THEM RIGHT NOW". EDUCATED RISKS VS BENEFITS. PATIENT CONTINUED TO REFUSE IV FLUIDS.
--- NOTE | 2019-07-09 18:52 | NUR ---
PLASTIC CNC MACHINE OPERATOR CLOSING NOTES PATIENT IN BED RESTING COMFORTABLY. PATIENT IN NO ACUTE DISTRESS. NO SOB NOTED. PATIENT BREATHING IS EVEN AND UNLABORED. BED ALARM IS ON. PATIENT SAFETY PRECAUTIONS IN PLACE. PATIENT ON CARDIAC MONITORING READING SINUS RHYTHM HR 84. PATIENT STATES LEFT SHOULDER PAIN 5/10 AND IS TOLERABLE. PATIENT IS REFUSING TO HAVE ANY PAIN MEDICATIONS AT THIS TIME. PATIENT KEPT CLEAN, DRY AND COMFORTABLE THROUGHOUT SHIFT. PATIENT NEEDS AND CONCERNS ADDRESSED. EDUCATED ABOUT NPO STATUS AFTER MIDNIGHT. PATIENT VERBALIZES UNDERSTANDING. PATIENT REFUSES TO HAVE IV FLUIDS RUNNING AT THIS TIME. EDUCATED RISKS VS BENEFITS. PATIENT CONTINUES TO REFUSE. PATIENT BED IS LOCKED AND IN LOWEST POSITION. CALL LIGHT WITHIN REACH. WILL ENDORSE CARE TO PM SHIFT FOR YESIKA.
--- NOTE | 2019-07-09 19:15 | NUR ---
SPORTING GOODS SALESPERSON OPENING NOTES PATIENT AWAKE AND WATCHING TV IN BED. A/OX3. ABLE TO VERBALIZE NEEDS. ON ROOM AIR. DENIES ANY SOB OR PAIN AT THIS TIME. TELE MONITOR READING SINUS TACH, HEART RATE 102. IV PRESENT ON RIGHT FOREARM, SIZE 22, INTACT & PATENT, HEP LOCKED. LEFT SHOULDER SLING PRESENT. SAFETY MEASURES IN PLACE. BED LOCKED, ALARM ON, SIDE RAILS X2, CALL LIGHT WITHIN REACH. WILL CONTINUE TO MONITOR.
[2019-07-09] MEDS: LEVETIRACETAM (500MG) 1,000 MG in IV NS 0.9% 100 ML IV SCH (21:14)
[2019-07-10] VITALS: BP 141/97
[2019-07-10 04:00] VITALS: BP 155/91
--- NOTE | 2019-07-10 04:54 | NUR ---
COMMISSARY REPRESENTATIVE NOTES PATIENT C/O LEFT JAW PAIN RATED 5/10. ASKED PATIENT IF HE WANTED PAIN MEDICATION, HOWEVER PATIENT DECLINED. VITAL SIGNS - BP: 155/91 HR: 100 RR: 18 SPO2: 95 ON ROOM AIR. WILL CONTINUE TO MONITOR.
--- NOTE | 2019-07-10 06:45 | NUR ---
COURT SECURITY OFFICER NOTES PATIENT TRANSPORTED TO OR VIA GURNEY FOR PROCEDURE, CLOSED REDUCTION OF LEFT SHOULDER. CONSENT FORMS AND CHECKLIST VERIFIED WITH OR NURSE, VIGNESH.
[2019-07-10 06:47] LABS: BASOPHILS % (AUTO) 0.3 % (0.0-2.0); EOSINOPHILS % (AUTO) 0.6 % (0.0-6.0); HEMATOCRIT 42 % (39-51); HEMOGLOBIN 13.8 g/dL (13.5-17.5); LYMPHOCYTES # (AUTO) 0.6 /CMM (0.8-4.8); LYMPHOCYTES % (AUTO) 7.9 % (20.0-44.0); MEAN CORPUSCULAR HGB CONC 33 g/dl (31.0-36.0); MEAN CORPUSCULAR VOLUME 89 fL (80-96); MONOCYTES % (AUTO) 12.8 % (2.0-12.0); NEUTROPHILS # (AUTO) 6.4 /CMM (1.8-8.9); NEUTROPHILS % (AUTO) 78.4 % (43.0-81.0); PLATELET COUNT (AUTO) 264 /CMM (150-450); RED BLOOD CELL COUNT(AUTO) 4.68 MIL/uL (4.5-6.0); WHITE BLOOD COUNT (AUTO) 8.2 K/uL (4.3-11.0)
[2019-07-10 06:57] LABS: ALBUMIN 3.3 g/dL (3.4-5.0); BILIRUBIN,TOTAL 0.8 mg/dL (0.2-1.0); CALCIUM, SERUM 9.2 mg/dL (8.5-10.1); CREATININE 1.3 mg/dL (0.6-1.3); PHOSPHORUS 3.1 mg/dL (2.5-4.9); POTASSIUM 4.3 mmol/L (3.5-5.1); TOTAL PROTEIN, SERUM 7.2 g/dL (6.4-8.2)
[2019-07-10] MEDS ORDERED: ANESTHESIA TRAY IN PYXIS 1 EA TRAY MC ONE (06:59)
--- NOTE | 2019-07-10 07:10 | NUR ---
REGULATORY AFFAIRS INTERN OPENING NOTED RECEIVED REPORT FROM PM NURSE, PATIENT OUT OF ROOM AND UNIT FOR SURGERY AT THIS TIME.
--- NOTE | 2019-07-10 07:29 | NUR ---
RETORT FEEDER GROUND BONE CLOSING NOTES PATIENT IN OR FOR PROCEDURE ON LEFT SHOULDER. ENDORSED TO DAY SHIFT NURSE PLAN OF CARE.
[2019-07-10 08:00] VITALS: BP 138/89
--- NOTE | 2019-07-10 08:00 | NUR ---
PELLETIZER TENDER NOTES PT CAME BACK FROM SURGERY, REPORT GIVEN BY SONJA MEDELLIN. PT AWAKE, AO X4. NO S/S OF ANY ACUTE DISTRESS NOTED, DENIES PAIN AT THIS TIME. LEFT SHOULDER SLING IN PLACE. VITAL SIGNS STABLE. RECEIVED ORDER FROM DR MCCORMICK, RESUME PREVIOUS ORDERS AND DIET. PT ABLE TO VERBALIZE NEEDS, SEIZURE AND SAFETY PRECAUTIONS IN PLACE, BED IN LOCKED LOWEST POSITION, SIDE RAILS UP X3 AND PADDED, CALL LIGHT WITHIN REACH. WILL CONTINUE TO MONITOR
[2019-07-10 08:50] VITALS: BP 138/89
--- NOTE | 2019-07-10 09:00 | NUR ---
DAG SPRAYER NOTES MONITORED PT. VITAL SIGNS WNL. PT APPEARS COMFORTABLE WITH NO APPARENT DISTRESS NOTED. NO C/O OF PAIN AT THIS TIME, NO SOB NOTED. WILL CONTINUE TO MONITOR
--- NOTE | 2019-07-10 09:07 | NUR ---
BASIC ACOUSTIC ANALYST NOTES PATIENT SEEN AND EVALUATED BY DR LIZETH LOZANO, CLARIFIED DIET MD ORDERED SOFT DIET. ORDERS CLARIFIED AND READ BACK TO MD, NOTED AND CARRIED OUT.
[2019-07-10] MEDS: LEVETIRACETAM (500MG) 1,000 MG in IV NS 0.9% 100 ML IV SCH (09:21)
--- NOTE | 2019-07-10 12:55 | NUR ---
MS RN NOTES RECEIVED NEW ORDERS FROM VERO JACQUES FOR STAT CT LEFT SHOULDER WITH 3D RECONSTRUCTION, NWB ON THE LEFT SHOULDER, LEFT SHOULDER SLING ON AT ALL TIMES, ORDERS READ BACK AND CLARIFIED WITH DYLON, NOTED AND CARRIED OUT.
[2019-07-10 16:15] VITALS: BP 135/77
--- NOTE | 2019-07-10 18:35 | NUR ---
SPECIAL CERTIFICATE DICTATOR NOTES PATIENT DISCHARGE HOME WITH STABLE VITAL SIGNS. NO ACUTE DISTRESS NOTED. BREATHING UNLABORED.DISCHARGE INSTRUCTIONS GIVEN TO THE PATIENT INCLUDING FOLLOW UP WITH DR RASMUSSEN AND DR GIBSON OUT PATIENT NEXT WEEK, MD OFFICE INFORMATIONS PROVIDED TO THE PATIENT TO SET UP APPOINTMENT,NON WEIGHT BEARING ON THE LEFT SHOULDER AND LEFT SHOULDER ON AT ALL TIMES, VERBALIZED UNDERSTANDING. ALL BELONGINGS ACCOUNTED FOR . NEEDS ATTENDED AND ANTICIPATED. VITAL SIGNS WITHIN NORMAL LIMITS TROUGH OUT THE SHIFT, PATIENT ALERT ORIENTED X 4, AMBULATORY WITH STEADY GAIT. ASSISTED TO THE LOBBY, PICKED UP VIA PRIVATE CAR BY FRIEND IN STABLE CONDITION. PATIENT REFUSED BACK PHOTO TAKEN. Addendum: 07/10/19 at 1839 by JOSE FRANZ RN ADDENDUM IV ACCESS REMOVED. NO REDNESS , NO SWELLING, NO BLEEDING NOTED. Addendum: 07/10/19 at 2003 by JOSE FRANZ RN ADDENDUM INSTRUCTION LEFT SHOULDER SLING ON AT ALL TIMES , VERBALIZED UNDERSTANDING.
[2019-07-11] MEDS ORDERED: LEVE500T9 PO (19:30)
== END 2019-07-10 18:32 | disposition home or self-care (01) | DRG 562 ==
LOC: ER 17:53 → TELE 21:22
PROVIDERS: ADMIT Nurse Practitioner Acute Care; ATTEND Internal Medicine
PROC: 0PS Upper Bones, Reposition (ICD-10-PCS; principal; 2019-07-08)
PROC: 0PS Upper Bones, Reposition (ICD-10-PCS; principal; 2019-07-08)
DX: S42.292A Other displaced fracture of upper end of left humerus, initial encounter for closed fracture (principal); I21.A1 Myocardial infarction type 2; S02.642A Fracture of ramus of left mandible, initial encounter for closed fracture; S43.025A Posterior dislocation of left humerus, initial encounter; W18.30XA Fall on same level, unspecified, initial encounter; Y92.480 Sidewalk as the place of occurrence of the external cause; G40.909 Epilepsy, unspecified, not intractable, without status epilepticus; S43.005A Unspecified dislocation of left shoulder joint, initial encounter; S03.02XA Dislocation of jaw, left side, initial encounter; E86.0 Dehydration; R79.89 Other specified abnormal findings of blood chemistry; M19.019 Primary osteoarthritis, unspecified shoulder; Z80.0 Family history of malignant neoplasm of digestive organs; Z86.73 Personal history of transient ischemic attack (TIA), and cerebral infarction without residual deficits; F12.10 Cannabis abuse, uncomplicated; I25.2 Old myocardial infarction; Z98.890 Other specified postprocedural states
CPT/HCPCS: 36415; 70450-TC; 70486-TC; 71045-TC; 72125-TC; 73020; 73030-TC; 73200-TC; 80048-TC; 80053-TC; 80061-TC; 80076-TC; 81000-TC; 82962-TC; 83735-TC; 84100-TC; 84443-TC; 84484-TC; 85025-TC; 85610-TC; 85730-TC; 86850-TC; 87081-TC; 90715; 93307-TC; 93880-TC; 95819-TC; A4216; G0378; G0480; J1953; J2270; J2405; J2704; J3490; J7030; L1830

== ENCOUNTER 2022-08-13 04:34 | Emergency (ER) | payer MEDICARE, OTHER ==
[~2022-08-13] VITALS: Ht 182.9 cm; Wt 76.2 kg
[~2022-08-13 04:34] MED LIST: LEVE500T9 PO
--- NOTE | 2022-08-13 04:45 | NUR ---
c/o sob "i can't sleep"
--- NOTE | 2022-08-13 04:51 | NUR ---
DR. SANCHEZ AT BEDSIDE
--- NOTE | 2022-08-13 05:13 | NUR ---
BLOOD DRAWN SENT TO LAB
[2022-08-13 05:37] LABS: BASOPHILS % (AUTO) 0.7 % (0.0-2.0); EOSINOPHILS % (AUTO) 3.1 % (0.0-6.0); HEMATOCRIT 40 % (39-51); HEMOGLOBIN 13.1 g/dL (13.5-17.5); LYMPHOCYTES # (AUTO) 0.9 K/uL (0.8-4.8); LYMPHOCYTES % (AUTO) 16.6 % (20.0-44.0); MEAN CORPUSCULAR HGB CONC 32 g/dl (31.0-36.0); MEAN CORPUSCULAR VOLUME 88 fL (80-96); MONOCYTES # (AUTO) 0.6 K/uL (0.1-1.30); MONOCYTES % (AUTO) 10.8 % (2.0-12.0); NEUTROPHILS # (AUTO) 3.9 K/uL (1.8-8.9); NEUTROPHILS % (AUTO) 68.8 % (43.0-81.0); PLATELET COUNT (AUTO) 316 K/uL (150-450); RED BLOOD CELL COUNT(AUTO) 4.59 MIL/uL (4.5-6.0); WHITE BLOOD COUNT (AUTO) 5.6 K/uL (4.3-11.0)
--- NOTE | 2022-08-13 05:38 | NUR ---
X-RAY AT BEDSIDE
[2022-08-13 05:45] LABS: CARBON DIOXIDE 26 mmol/L (21-32); CHLORIDE 104 mmol/L (98-107); CREATININE 1.1 mg/dL (0.6-1.3); GLUCOSE 92 mg/dL (74-106); POTASSIUM 4.6 mmol/L (3.5-5.1); SODIUM SERUM 139 mmol/L (136-145); UREA NITROGEN, BLOOD 22 mg/dL (7-18)
[2022-08-13 05:59] LABS: ALANINE AMINOTRANSFERASE 20 U/L (12-78); ALBUMIN 3.2 g/dL (3.4-5.0); ALKALINE PHOSPHATASE 62 U/L (46-116); ASPARTATE AMINOTRANSFERASE 32 U/L (15-37); BILIRUBIN,TOTAL 0.3 mg/dL (0.2-1.0)
[2022-08-13] MEDS ORDERED: FLUT16SP16 BNOSTRILS (07:23)
--- NOTE | 2022-08-13 07:44 | NUR ---
Patient discharged to home in stable condition. Written and verbal after care instructions given. Patient verbalizes understanding of instruction. IV removed. Catheter intact and site benign. Pressure and 4x4 applied to site. No bleeding noted.
[2022-08-13 07:45] VITALS: BP 132/88
== END 2022-08-13 07:45 | disposition home or self-care (01) ==
LOC: ER 04:37
DX: G47.00 Insomnia, unspecified (principal); R06.02 Shortness of breath
CPT/HCPCS: 36415; 71045-TC; 80048-TC; 80076-TC; 83880; 84484-TC; 85025-TC; 85730-TC

== ENCOUNTER 2022-08-26 03:10 | Emergency (ER) | payer MEDICARE, OTHER ==
[~2022-08-26] VITALS: Ht 182.9 cm; Wt 76.2 kg
[~2022-08-26 03:10] MED LIST changes: +FLUT16SP16 BNOSTRILS
--- NOTE | 2022-08-26 03:45 | NUR ---
BIBSELF FROM HOME C/O CP RADIATING TO L ARM SINCE YESTERDAY. CONGESTION. Pt. sen by .
[2022-08-26] MEDS ORDERED: ASPIRIN 325 MG TABLET ONE (03:51)
[2022-08-26] MEDS ORDERED: NITROGLYCERIN 0.4 MG/TAB BOTTLE SL ONE (04:00)
[2022-08-26] MEDS ORDERED: ASPIRIN 325 MG TABLET PO ONE (04:00)
[2022-08-26] MEDS ORDERED: P-EPHED SUL/LORATADINE (24H) 1 TAB.SR.24H PO SCH (04:00)
--- NOTE | 2022-08-26 04:00 | NUR ---
Pt connected to monitor, EKG done, IV 18g inserted to right AC and lab drawn and sent to lab.
[2022-08-26] MEDS ORDERED: LORATADINE 10 MG TABLET ONE (04:15)
[2022-08-26 04:25] LABS: BASOPHILS % (AUTO) 0.8 % (0.0-2.0); EOSINOPHILS % (AUTO) 2.9 % (0.0-6.0); HEMATOCRIT 38 % (39-51); HEMOGLOBIN 12.3 g/dL (13.5-17.5); LYMPHOCYTES # (AUTO) 0.7 K/uL (0.8-4.8); LYMPHOCYTES % (AUTO) 15.4 % (20.0-44.0); MEAN CORPUSCULAR HGB CONC 33 g/dl (31.0-36.0); MEAN CORPUSCULAR VOLUME 88 fL (80-96); MONOCYTES # (AUTO) 0.7 K/uL (0.1-1.30); MONOCYTES % (AUTO) 15.9 % (2.0-12.0); PLATELET COUNT (AUTO) 259 K/uL (150-450); RED BLOOD CELL COUNT(AUTO) 4.27 MIL/uL (4.5-6.0); WHITE BLOOD COUNT (AUTO) 4.7 K/uL (4.3-11.0)
[2022-08-26] MEDS ORDERED: LORATADINE 10 MG TABLET PO SCH (04:30)
[2022-08-26 04:44] LABS: ALANINE AMINOTRANSFERASE 28 U/L (12-78); ALBUMIN 3.1 g/dL (3.4-5.0); ALKALINE PHOSPHATASE 74 U/L (46-116); ASPARTATE AMINOTRANSFERASE 25 U/L (15-37); BILIRUBIN,DIRECT 0.1 mg/dL (0.0-0.2); BILIRUBIN,TOTAL 0.3 mg/dL (0.2-1.0); CALCIUM, SERUM 8.6 mg/dL (8.5-10.1); CARBON DIOXIDE 27 mmol/L (21-32); CHLORIDE 106 mmol/L (98-107); GLUCOSE 100 mg/dL (74-106); SODIUM SERUM 139 mmol/L (136-145); TOTAL PROTEIN, SERUM 6.7 g/dL (6.4-8.2); UREA NITROGEN, BLOOD 19 mg/dL (7-18)
--- NOTE | 2022-08-26 04:45 | NUR ---
X-RAY AT BEDSIDE
[2022-08-26 08:06] VITALS: BP 119/79
--- NOTE | 2022-08-26 08:06 | NUR ---
IV removed. Catheter intact and site benign. Pressure and 4x4 applied to site. No bleeding noted.
--- NOTE | 2022-08-26 08:06 | NUR ---
Patient discharged to home in stable condition. Written and verbal after care instructions given. Patient verbalizes understanding of instruction.
== END 2022-08-26 08:07 | disposition home or self-care (01) ==
LOC: ER 03:11
DX: R07.89 Other chest pain (principal); R09.81 Nasal congestion; Z79.899 Other long term (current) drug therapy
CPT/HCPCS: 36415; 71045-TC; 80048-TC; 80076-TC; 84484-TC; 85025-TC

== ENCOUNTER 2023-03-15 21:49 | Emergency (ER) | payer MEDICARE, OTHER ==
[~2023-03-15] VITALS: Ht 182.9 cm; Wt 78.0 kg
[2023-03-15 22:35] LABS: EOSINOPHILS # (AUTO) 0.1 K/uL (0.0-0.7); HEMATOCRIT 38 % (39-51); HEMOGLOBIN 12.3 g/dL (13.5-17.5); LYMPHOCYTES # (AUTO) 1.1 K/uL (0.8-4.8); LYMPHOCYTES % (AUTO) 23.3 % (20.0-44.0); MEAN CORPUSCULAR HEMOGLOBIN 28 PG (26.0-33.0); MEAN CORPUSCULAR HGB CONC 32 g/dl (31.0-36.0); MEAN CORPUSCULAR VOLUME 88 fL (80-96); MONOCYTES # (AUTO) 0.5 K/uL (0.1-1.30); MONOCYTES % (AUTO) 11.6 % (2.0-12.0); NEUTROPHILS # (AUTO) 2.8 K/uL (1.8-8.9); NEUTROPHILS % (AUTO) 61.1 % (43.0-81.0); PLATELET COUNT (AUTO) 270 K/uL (150-450); RED BLOOD CELL COUNT(AUTO) 4.38 MIL/uL (4.5-6.0); WHITE BLOOD COUNT (AUTO) 4.6 K/uL (4.3-11.0)
[2023-03-15 22:46] LABS: CREATININE 1.1 mg/dL (0.6-1.3)
[2023-03-16 01:16] LABS: ALANINE AMINOTRANSFERASE 25 U/L (12-78); ALKALINE PHOSPHATASE 53 U/L (46-116); ASPARTATE AMINOTRANSFERASE 21 U/L (15-37); BILIRUBIN,DIRECT 0.1 mg/dL (0.0-0.2); BILIRUBIN,TOTAL 0.2 mg/dL (0.2-1.0); NT-PRO BNP 117 pg/mL (0-125); TOTAL PROTEIN, SERUM 7.2 g/dL (6.4-8.2)
[2023-03-16 01:20] LABS: CARBON DIOXIDE 25 mmol/L (21-32); CHLORIDE 103 mmol/L (98-107); POTASSIUM 4.2 mmol/L (3.5-5.1); SODIUM SERUM 139 mmol/L (136-145)
[2023-03-16 01:21] LABS: ALBUMIN 3.3 g/dL (3.4-5.0); CALCIUM, SERUM 8.9 mg/dL (8.5-10.1); GLUCOSE 117 mg/dL (74-106); UREA NITROGEN, BLOOD 29 mg/dL (7-18)
[2023-03-16 02:39] VITALS: BP 150/94; TEMP 98.1; O2SAT 97
== END 2023-03-16 02:40 | disposition home or self-care (01) ==
LOC: ER 22:01
DX: R07.89 Other chest pain (principal); G40.909 Epilepsy, unspecified, not intractable, without status epilepticus; Z79.899 Other long term (current) drug therapy
CPT/HCPCS: 36415; 71045-TC; 80048-TC; 80076-TC; 83880; 84484-TC; 85025-TC

== ENCOUNTER 2023-04-28 16:15 | Emergency (ER) | payer MEDICARE, OTHER ==
[~2023-04-28] VITALS: Ht 182.9 cm; Wt 77.1 kg
[2023-04-28] MEDS ORDERED: LIDO30AD10 TP (17:02)
[2023-04-28] MEDS ORDERED: CYCL5TAB PO (17:02)
[2023-04-28 17:16] VITALS: BP 136/81; TEMP 98.6; O2SAT 96
== END 2023-04-28 17:16 | disposition home or self-care (01) ==
LOC: ER 16:15
DX: S46.912A Strain of unspecified muscle, fascia and tendon at shoulder and upper arm level, left arm, initial encounter (principal); X58.XXXA Exposure to other specified factors, initial encounter; Y93.B9 Activity, other involving muscle strengthening exercises; Y92.89 Other specified places as the place of occurrence of the external cause; Y99.8 Other external cause status

== ENCOUNTER 2023-11-24 01:59 | Emergency (ER) | payer MEDICARE, OTHER ==
[~2023-11-24] VITALS: Ht 182.9 cm; Wt 77.1 kg
[~2023-11-24 01:59] MED LIST changes: +CYCL5TAB PO; +LIDO30AD10 TP
[2023-11-24 02:42] VITALS: TEMP 98.4
[2023-11-24] MEDS ORDERED: KETOROLAC TROMETHAMINE INJ 30 MG/ML VIAL ONE (02:50)
[2023-11-24] MEDS: KETOROLAC TROMETHAMINE 15 MG/ML VIAL IV ONE (03:00)
[2023-11-24] MEDS: IV NS 0.9% 500 ML BAG IV ONE (03:00)
[2023-11-24 03:03] LABS: APPEARANCE,URINE CLEAR (CLEAR); BILIRUBIN,URINE NEGATIVE (NEGATIVE); BLOOD, URINE 1+ Ery/uL (NEGATIVE); COLOR,URINE YELLOW (YELLOW); KETONES,URINE NEGATIVE (NEGATIVE); LEUKOCYTE ESTERASE ,URINE NEGATIVE (NEGATIVE); NITRITE, URINE NEGATIVE (NEGATIVE); PH,URINE 5.5 (5.0-8.0); PROTEIN,URINE NEGATIVE (NEGATIVE); UGLUCOSE NEGATIVE (NEGATIVE); UROBILINOGEN,URINE 0.2 EU/dL (0.2)
[2023-11-24 03:05] LABS: ADD URINE CULTURE NO; BACTERIA,URINE Rare /HPF (None Seen); SQUAMOUS EPITHELIAL CELL,UR Rare /HPF (None Seen); WBC,URINE 0-2 /HPF (0-3)
[2023-11-24 03:07] LABS: BASOPHILS # (AUTO) 0.1 K/uL (0.0-0.2); EOSINOPHILS # (AUTO) 0.2 K/uL (0.0-0.7); EOSINOPHILS % (AUTO) 3.3 % (0.0-6.0); HEMATOCRIT 40 % (39-51); HEMOGLOBIN 13.1 g/dL (13.5-17.5); LYMPHOCYTES # (AUTO) 1.2 K/uL (0.8-4.8); MEAN CORPUSCULAR HEMOGLOBIN 29 PG (26.0-33.0); MEAN CORPUSCULAR HGB CONC 33 g/dl (31.0-36.0); MEAN CORPUSCULAR VOLUME 88 fL (80-96); MONOCYTES # (AUTO) 0.6 K/uL (0.1-1.30); NEUTROPHILS # (AUTO) 3.3 K/uL (1.8-8.9); NEUTROPHILS % (AUTO) 62.7 % (43.0-81.0); PLATELET COUNT (AUTO) 318 K/uL (150-450); RED BLOOD CELL COUNT(AUTO) 4.52 MIL/uL (4.5-6.0); RED CELL DISTRIBUTION WIDTH 13.9 % (11.5-15.0); WHITE BLOOD COUNT (AUTO) 5.3 K/uL (4.3-11.0)
[2023-11-24 03:08] VITALS: BP 139/84; O2SAT 100
[2023-11-24 03:15] LABS: CALCIUM, SERUM 9.3 mg/dL (8.5-10.1); CARBON DIOXIDE 31 mmol/L (21-32); CHLORIDE 104 mmol/L (98-107); CREATININE 1.3 mg/dL (0.6-1.3); GLUCOSE 90 mg/dL (74-106); POTASSIUM 4.3 mmol/L (3.5-5.1); SODIUM SERUM 140 mmol/L (136-145); UREA NITROGEN, BLOOD 24 mg/dL (7-18)
[2023-11-24 03:21] LABS: ALANINE AMINOTRANSFERASE 20 U/L (12-78); ALKALINE PHOSPHATASE 74 U/L (46-116); ASPARTATE AMINOTRANSFERASE 25 U/L (15-37); BILIRUBIN,TOTAL 0.3 mg/dL (0.2-1.0); LIPASE 64 U/L (16-77); TOTAL PROTEIN, SERUM 7.2 g/dL (6.4-8.2)
== END 2023-11-24 04:10 | disposition home or self-care (01) ==
LOC: ER 02:06
DX: M54.59 Other low back pain (principal); G40.909 Epilepsy, unspecified, not intractable, without status epilepticus; F12.10 Cannabis abuse, uncomplicated; Z87.438 Personal history of other diseases of male genital organs; Z87.448 Personal history of other diseases of urinary system
CPT/HCPCS: 99285; 74176; 96374; 85025; 80048; 83690; 80076; 81001; 36415; J1885; J7040

== ENCOUNTER 2024-01-30 21:29 | Emergency (ER) | payer MEDICARE, OTHER | END 2024-01-30 23:48 | disposition left against medical advice (07) | LOC: ER 21:36 | DX: M54.2 Cervicalgia (principal); M25.519 Pain in unspecified shoulder; Z53.21 Procedure and treatment not carried out due to patient leaving prior to being seen by health care provider ==

== ENCOUNTER 2024-06-24 02:08 | Emergency (ER) | payer MEDICARE, OTHER ==
[~2024-06-24] VITALS: Ht 182.9 cm; Wt 77.1 kg
[2024-06-24 02:37] VITALS: TEMP 97.7
[2024-06-24 03:09] LABS: EOSINOPHILS # (AUTO) 0.2 K/uL (0.0-0.7); EOSINOPHILS % (AUTO) 3.9 % (0.0-6.0); HEMATOCRIT 38 % (39-51); HEMOGLOBIN 12.6 g/dL (13.5-17.5); LYMPHOCYTES # (AUTO) 1.1 K/uL (0.8-4.8); LYMPHOCYTES % (AUTO) 24.3 % (20.0-44.0); MEAN CORPUSCULAR HEMOGLOBIN 29 PG (26.0-33.0); MEAN CORPUSCULAR HGB CONC 33 g/dl (31.0-36.0); MEAN CORPUSCULAR VOLUME 87 fL (80-96); MONOCYTES # (AUTO) 0.5 K/uL (0.1-1.30); MONOCYTES % (AUTO) 12.1 % (2.0-12.0); NEUTROPHILS # (AUTO) 2.6 K/uL (1.8-8.9); NEUTROPHILS % (AUTO) 58.7 % (43.0-81.0); PLATELET COUNT (AUTO) 286 K/uL (150-450); RED BLOOD CELL COUNT(AUTO) 4.37 MIL/uL (4.5-6.0); RED CELL DISTRIBUTION WIDTH 13.8 % (11.5-15.0); WHITE BLOOD COUNT (AUTO) 4.4 K/uL (4.3-11.0)
[2024-06-24] MEDS ORDERED: CT SWABBABLE VALVE TRANS SET 1 EA INFUS.SET MC ONE (03:09)
[2024-06-24] MEDS ORDERED: IOHEXOL-300 100 ML VIAL IV ONE (03:09)
[2024-06-24] MEDS ORDERED: IV NS 0.9% 250 ML IV ONE (03:09)
[2024-06-24 03:20] LABS: CALCIUM, SERUM 8.6 mg/dL (8.5-10.1); CARBON DIOXIDE 31 mmol/L (21-32); CHLORIDE 102 mmol/L (98-107); CREATININE 1.3 mg/dL (0.6-1.3); GLUCOSE 101 mg/dL (74-106); POTASSIUM 4.3 mmol/L (3.5-5.1); SODIUM SERUM 139 mmol/L (136-145); UREA NITROGEN, BLOOD 21 mg/dL (7-18)
[2024-06-24 03:26] LABS: ALANINE AMINOTRANSFERASE 17 U/L (12-78); ALBUMIN 3.4 g/dL (3.4-5.0); ALKALINE PHOSPHATASE 71 U/L (46-116); ASPARTATE AMINOTRANSFERASE 20 U/L (15-37); BILIRUBIN,DIRECT 0.1 mg/dL (0.0-0.2); BILIRUBIN,TOTAL 0.3 mg/dL (0.2-1.0); LIPASE 68 U/L (16-77); TOTAL PROTEIN, SERUM 7.1 g/dL (6.4-8.2)
[2024-06-24 03:40] LABS: APPEARANCE,URINE CLEAR (CLEAR); BILIRUBIN,URINE NEGATIVE (NEGATIVE); BLOOD, URINE 3+ Ery/uL (NEGATIVE); COLOR,URINE YELLOW (YELLOW); KETONES,URINE NEGATIVE (NEGATIVE); LEUKOCYTE ESTERASE ,URINE NEGATIVE (NEGATIVE); NITRITE, URINE NEGATIVE (NEGATIVE); PROTEIN,URINE TRACE mg/dl (NEGATIVE); UGLUCOSE NEGATIVE (NEGATIVE); UROBILINOGEN,URINE 0.2 EU/dL (0.2)
[2024-06-24 04:20] LABS: ADD URINE CULTURE YES; BACTERIA,URINE Rare /HPF (None Seen); RBC,URINE 0-2 /HPF (0-2); SQUAMOUS EPITHELIAL CELL,UR 0-2 /HPF (None Seen); WBC,URINE 21-50 /HPF (0-3)
[2024-06-24] MEDS ORDERED: CEPH-570 PO (05:33)
[2024-06-24 05:42] VITALS: BP 130/80; O2SAT 95
== END 2024-06-24 05:42 | disposition home or self-care (01) ==
LOC: ER 02:15
DX: N39.0 Urinary tract infection, site not specified (principal); R09.89 Other specified symptoms and signs involving the circulatory and respiratory systems; R07.9 Chest pain, unspecified; R06.00 Dyspnea, unspecified; R05.9 Cough, unspecified; E86.0 Dehydration; F12.90 Cannabis use, unspecified, uncomplicated; G40.909 Epilepsy, unspecified, not intractable, without status epilepticus; N40.0 Benign prostatic hyperplasia without lower urinary tract symptoms; Z79.899 Other long term (current) drug therapy
CPT/HCPCS: 99285; 70491; 71045; 93005; 85025; 80048; 87086; 83690; 80076; 81001; 36415; 84484; 83880; J7050; Q9967